=== PATIENT | female | born 1995 | race Caucasian/White ===

== ENCOUNTER 2023-09-16 03:28 | Emergency (ER) | payer SELFPAY ==
[2023-09-16] MEDS ORDERED: Amoxicillin/Potassium Clav 875 MG TAB ONE (04:12)
== END 2023-09-16 04:20 | disposition home or self-care (01) ==
LOC: MADERS 03:28
DX: K08.89 Other specified disorders of teeth and supporting structures (principal)
CPT/HCPCS: 99282